=== PATIENT | male | born 1995 | race Caucasian/White ===

== ENCOUNTER 2017-01-17 18:24 | Inpatient (IN) | payer OTHER ==
[~2017-01-17] VITALS: Ht 177.8 cm; Wt 120.0 kg
[~2017-01-17 18:24] MED LIST: CARCD120 PO; METOPROLOL TART25 M1 PO
[2017-01-17 19:42] LABS: BASOPHIL % 0.6 % (0-2); PLATELET COUNT 161 x10^3mcL (130-400); RED CELL DISTRIBUTION WIDTH 13.4 % (11.5-14.5)
[2017-01-17 19:51] LABS: CARBON DIOXIDE 28.2 mmol/L (21-32); CHLORIDE SERUM 105 mmol/L (98-107); CREATININE SERUM 1.2 mg/dL (0.7-1.3); GFR1 > 60 mL/min; GLUCOSE SERUM 103 mg/dL (74-106); POTASSIUM SERUM 4.6 mmol/L (3.5-5.1); SODIUM SERUM 142 mmol/L (136-145)
[2017-01-17 19:56] LABS: ALKALINE PHOSPHATASE 109 U/L (46-116); ALT/SGPT 31 U/L (16-63); AST/SGOT 16 U/L (15-37); BILIRUBIN TOTAL 0.31 mg/dL (0.20-1.00); MAGNESIUM 2.2 mg/dL (1.8-2.4); TOTAL PROTEIN, SERUM 7.3 g/dL (6.4-8.2)
[2017-01-17 21:55] LABS: FREE T4 1.04 ng/dL (0.76-1.46)
[2017-01-17] MEDS ORDERED: CYCLOBENZAPRINE5 MG PO (23:14)
[2017-01-17] MEDS ORDERED: METOPROLOL TART50 MG PO (23:14)
[2017-01-18 00:31] VITALS: BP 121/91
[2017-01-18 02:56] LABS: T3 TOTAL 1.2 ng/mL
[2017-01-18 04:17] LABS: microscopic required? NO
[2017-01-18 04:27] LABS: urine erythrocyte NEGATIVE (NEGATIVE)
[2017-01-18 04:37] LABS: AMPHETAMINE QUAL UR NONE DETECTED (NEG <=1000)
[2017-01-18 05:22] VITALS: BP 113/59
[2017-01-18 09:39] VITALS: BP 110/62
[2017-01-18 13:33] VITALS: BP 131/74
[2017-01-18 17:44] VITALS: BP 118/63
[2017-01-18 21:59] VITALS: BP 126/80
[2017-01-19 06:13] VITALS: BP 103/68
[2017-01-19 06:23] LABS: BASOPHIL % 0.6 % (0-2); PLATELET COUNT 143 x10^3mcL (130-400); RED CELL DISTRIBUTION WIDTH 13.3 % (11.5-14.5)
[2017-01-19 06:40] LABS: ALBUMIN 3.6 g/dL (3.4-5.0); CALCIUM 8.6 mg/dL (8.5-10.1); CHLORIDE SERUM 105 mmol/L (98-107); CREATININE SERUM 1.3 mg/dL (0.7-1.3); GFR1 > 60 mL/min; GLUCOSE SERUM 89 mg/dL (74-106); MAGNESIUM 2.1 mg/dL (1.8-2.4); PHOSPHOROUS 4.9 mg/dL (2.5-4.9); POTASSIUM SERUM 4.4 mmol/L (3.5-5.1); SODIUM SERUM 142 mmol/L (136-145)
[2017-01-19 10:00] VITALS: BP 120/79
[2017-01-19 14:30] VITALS: BP 114/69
[2017-01-19 19:15] VITALS: BP 118/70
[2017-01-20 00:11] VITALS: BP 116/53
[2017-01-20 08:29] VITALS: Ht 177.8 cm; Wt 120.0 kg
[2017-01-20] MEDS ORDERED: VERAPAMIL HCL120 M2 PO (09:15)
[2017-01-20 09:20] VITALS: BP 119/77
[2017-01-20 13:17] VITALS: BP 133/76
== END 2017-01-20 14:01 | disposition home or self-care (01) | DRG 309 ==
LOC: ED 18:24 → IC 22:39 → DU 22:39 → IC 01-19 15:28 → DU 01-20 08:27
PROVIDERS: Emergency Medicine; Family Medicine; ADMIT Family Medicine
DX: I47.1 Supraventricular tachycardia (principal); E87.2 Acidosis; I42.9 Cardiomyopathy, unspecified; I10 Essential (primary) hypertension; F19.19 Other psychoactive substance abuse with unspecified psychoactive substance-induced disorder; K21.9 Gastro-esophageal reflux disease without esophagitis; Z68.38 Body mass index [BMI] 38.0-38.9, adult; E66.9 Obesity, unspecified; F19.10 Other psychoactive substance abuse, uncomplicated; Z88.8 Allergy status to other drugs, medicaments and biological substances; F43.9 Reaction to severe stress, unspecified
CPT/HCPCS: 80307; 83880; 84439; J0153; J2060; J3490; J7030; Q0092

== ENCOUNTER → 2017-03-15 | Outpatient (CLI) | payer OTHER ==
[~2017-03-15] MED LIST changes: +CYCLOBENZAPRINE5 MG PO; +METOPROLOL TART50 MG PO; +VERAPAMIL HCL120 M2 PO
[2017-03-15 17:37] LABS: microscopic required? NO
[2017-03-15 17:41] LABS: BASOPHIL % 0.3 % (0-2); PLATELET COUNT 155 x10^3mcL (130-400); RED CELL DISTRIBUTION WIDTH 13.1 % (11.5-14.5)
[2017-03-15 17:42] LABS: UA SPECIFIC GRAVITY 1.025 (1.005-1.035); urine erythrocyte NEGATIVE (NEGATIVE)
[2017-03-15 17:46] LABS: CARBON DIOXIDE 28.5 mmol/L (21-32); CHLORIDE SERUM 103 mmol/L (98-107); CREATININE SERUM 1.1 mg/dL (0.7-1.3); GFR1 > 60 mL/min; GLUCOSE SERUM 87 mg/dL (74-106); SODIUM SERUM 140 mmol/L (136-145)
== END | disposition home or self-care (01) ==
LOC: RD 16:41 → LB 16:41
DX: D64.9 Anemia, unspecified (principal); I10 Essential (primary) hypertension; R31.9 Hematuria, unspecified; R79.1 Abnormal coagulation profile

== ENCOUNTER 2017-06-06 15:02 | Emergency (ER) | payer OTHER ==
[2017-06-06 16:59] LABS: BASOPHIL % 0.4 % (0-2); PLATELET COUNT 172 x10^3mcL (130-400); RED CELL DISTRIBUTION WIDTH 13.1 % (11.5-14.5)
[2017-06-06 17:08] LABS: CARBON DIOXIDE 29.6 mmol/L (21-32); CHLORIDE SERUM 105 mmol/L (98-107); CREATININE SERUM 1.3 mg/dL (0.7-1.3); GFR1 > 60 mL/min; GLUCOSE SERUM 88 mg/dL (74-106); MAGNESIUM 2.2 mg/dL (1.8-2.4); POTASSIUM SERUM 3.9 mmol/L (3.5-5.1); SODIUM SERUM 139 mmol/L (136-145)
[2017-06-06 19:13] VITALS: BP 124/86
== END 2017-06-06 19:13 | disposition home or self-care (01) ==
LOC: ED 15:02
PROVIDERS: Emergency Medicine
DX: I47.1 Supraventricular tachycardia (principal); Z91.041 Radiographic dye allergy status
CPT/HCPCS: J3490

== ENCOUNTER → 2017-06-30 | Outpatient (CLI) | payer OTHER ==
[2017-06-30 14:36] LABS: ALBUMIN 3.8 g/dL (3.4-5.0); ALKALINE PHOSPHATASE 83 U/L (46-116); ALT/SGPT 52 U/L (16-63); AST/SGOT 22 U/L (15-37); CALCIUM 9.1 mg/dL (8.5-10.1); CARBON DIOXIDE 32.5 mmol/L (21-32); CHLORIDE SERUM 102 mmol/L (98-107); GFR1 > 60 mL/min; GLUCOSE SERUM 90 mg/dL (74-106); POTASSIUM SERUM 3.9 mmol/L (3.5-5.1); SODIUM SERUM 140 mmol/L (136-145)
== END | disposition home or self-care (01) ==
LOC: LB 13:29
DX: F41.9 Anxiety disorder, unspecified (principal)

== ENCOUNTER → 2017-07-09 | Outpatient (CLI) | payer OTHER | END | disposition home or self-care (01) | LOC: RD 16:52 | DX: M48.00 Spinal stenosis, site unspecified (principal) ==

== ENCOUNTER 2017-08-17 18:20 | Emergency (ER) | payer OTHER ==
[~2017-08-17] VITALS: Ht 177.8 cm; Wt 129.7 kg
[2017-08-17 19:25] LABS: BASOPHIL % 0.5 % (0-2); PLATELET COUNT 165 x10^3mcL (130-400); RED CELL DISTRIBUTION WIDTH 13.1 % (11.5-14.5)
[2017-08-17 19:27] VITALS: BP 135/76
[2017-08-17 19:30] LABS: CALCIUM 8.8 mg/dL (8.5-10.1); CARBON DIOXIDE 31.6 mmol/L (21-32); CHLORIDE SERUM 104 mmol/L (98-107); CREATININE SERUM 1.3 mg/dL (0.7-1.3); GFR1 > 60 mL/min; GLUCOSE SERUM 86 mg/dL (74-106); POTASSIUM SERUM 3.6 mmol/L (3.5-5.1); SODIUM SERUM 140 mmol/L (136-145)
[2017-08-17 19:43] LABS: ALBUMIN 3.9 g/dL (3.4-5.0); ALKALINE PHOSPHATASE 64 U/L (46-116); ALT/SGPT 33 U/L (16-63); AST/SGOT 16 U/L (15-37); BILIRUBIN TOTAL 0.38 mg/dL (0.20-1.00); TOTAL PROTEIN, SERUM 7.6 g/dL (6.4-8.2)
== END 2017-08-17 20:26 | disposition home or self-care (01) ==
LOC: ED 18:20
PROVIDERS: Emergency Medicine
DX: R00.0 Tachycardia, unspecified (principal); Z88.8 Allergy status to other drugs, medicaments and biological substances
CPT/HCPCS: 36415

== ENCOUNTER → 2017-12-21 | Outpatient (CLI) | payer OTHER ==
[2017-12-21 10:38] LABS: BASOPHIL % 0.5 % (0-2); PLATELET COUNT 146 x10^3mcL (130-400)
[2017-12-21 10:54] LABS: RED CELL DISTRIBUTION WIDTH 14.6 % (11.5-14.5)
[2017-12-21 11:09] LABS: CALCIUM 8.7 mg/dL (8.5-10.1); CHLORIDE SERUM 106 mmol/L (98-107); GFR1 > 60 mL/min; GLUCOSE SERUM 91 mg/dL (74-106); POTASSIUM SERUM 4.6 mmol/L (3.5-5.1); SODIUM SERUM 144 mmol/L (136-145)
== END | disposition home or self-care (01) ==
LOC: LB 09:40
PROVIDERS: Specialist
DX: I47.1 Supraventricular tachycardia (principal)

== ENCOUNTER → 2019-06-02 | Outpatient (CLI) | payer OTHER ==
[2019-06-02 11:15] LABS: microscopic required? NO
[2019-06-02 11:33] LABS: BASOPHIL % 0.5 % (0-2); PLATELET COUNT 155 x10^3mcL (130-400); RED CELL DISTRIBUTION WIDTH 13.1 % (11.5-14.5)
[2019-06-02 11:36] LABS: urine erythrocyte NEGATIVE (NEGATIVE)
[2019-06-02 12:44] LABS: CHLORIDE SERUM 105 mmol/L (98-107); GLUCOSE SERUM 88 mg/dL (74-106); POTASSIUM SERUM 4.2 mmol/L (3.5-5.1); SODIUM SERUM 141 mmol/L (136-145)
[2019-06-02 12:45] LABS: ALBUMIN 3.8 g/dL (3.4-5.0); ALKALINE PHOSPHATASE 104 U/L (46-116); ALT/SGPT 21 U/L (16-63); AST/SGOT 7 U/L (15-37); BILIRUBIN TOTAL 0.56 mg/dL (0.20-1.00); CALCIUM 8.3 mg/dL (8.5-10.1); CREATININE SERUM 1.5 mg/dL (0.7-1.3); GFR1 > 60 mL/min; TOTAL PROTEIN, SERUM 7.2 g/dL (6.4-8.2); TRIGLYCERIDES 88 mg/dL (<150)
[2019-06-02 12:46] LABS: CHOLESTEROL 117 mg/dL (<200); CHOLESTEROL/HDL RATIO 3.3; HDL CHOLESTEROL 35 mg/dL (40-60)
== END | disposition home or self-care (01) ==
LOC: LB 11:05
DX: Z00.00 Encounter for general adult medical examination without abnormal findings (principal); E66.01 Morbid (severe) obesity due to excess calories

== ENCOUNTER 2019-12-15 12:07 | Emergency (ER) | payer OTHER ==
[~2019-12-15] VITALS: Ht 175.3 cm; Wt 130.2 kg
[2019-12-15 12:19] VITALS: Ht 175.3 cm; Wt 130.2 kg
[2019-12-15 12:43] LABS: BASOPHIL % 0.3 % (0-2); PLATELET COUNT 153 x10^3mcL (130-400); RED CELL DISTRIBUTION WIDTH 12.5 % (11.5-14.5)
[2019-12-15 12:54] LABS: CALCIUM 8.3 mg/dL (8.5-10.1); CARBON DIOXIDE 29.7 mmol/L (21-32); CHLORIDE SERUM 102 mmol/L (98-107); CREATININE SERUM 1.3 mg/dL (0.7-1.3); GFR1 > 60 mL/min; GLUCOSE SERUM 102 mg/dL (74-106); SODIUM SERUM 138 mmol/L (136-145)
[2019-12-15 12:59] LABS: ALBUMIN 3.4 g/dL (3.4-5.0); ALKALINE PHOSPHATASE 75 U/L (46-116); ALT/SGPT 40 U/L (16-63); AST/SGOT 18 U/L (15-37); BILIRUBIN TOTAL 0.6 mg/dL (0.20-1.00); TOTAL PROTEIN, SERUM 7.3 g/dL (6.4-8.2)
[2019-12-15 16:06] VITALS: BP 142/82
== END 2019-12-15 16:06 | disposition home or self-care (01) ==
LOC: ED 12:07
PROVIDERS: Emergency Medicine
DX: G43.909 Migraine, unspecified, not intractable, without status migrainosus (principal); R50.9 Fever, unspecified; R19.7 Diarrhea, unspecified; Z90.89 Acquired absence of other organs
CPT/HCPCS: 87804; J0780; J1200; J1885; J2001; J7030